=== PATIENT | male | born 1990 | race Two or more races ===

== ENCOUNTER 2023-01-04 03:24 | Emergency (ER) | payer BC, MEDICAID ==
[~2023-01-04] VITALS: Ht 188 cm; Wt 88.1 kg
[2023-01-04 03:53] VITALS: BP 111/79
[2023-01-04] MEDS ORDERED: methylPREDNISolone SOD SUCC 125 MG/2 ML VL IM ONE (04:15)
[2023-01-04] MEDS ORDERED: cefTRIAXone SOD 1,000 MG VL IM ONE (04:15)
[2023-01-04] MEDS ORDERED: AMOX-277 PO (04:24)
[2023-01-04] MEDS ORDERED: PRED20TA2 PO (04:24)
== END 2023-01-04 05:57 | disposition home or self-care (01) ==
LOC: ER 03:24
DX: J02.9 Acute pharyngitis, unspecified (principal); F41.9 Anxiety disorder, unspecified
CPT/HCPCS: 96372; 99284; J0696; J2930

== ENCOUNTER 2023-03-13 02:57 | Emergency (ER) | payer BC ==
[~2023-03-13] VITALS: Ht 188 cm; Wt 81.8 kg
[~2023-03-13 02:57] MED LIST: AMOX-277 PO; PRED20TA2 PO
[2023-03-13 08:00] VITALS: BP 129/70
[2023-03-13] MEDS ORDERED: HYDR-4902 PO (08:35)
[2023-03-13] MEDS ORDERED: KETOROLAC TROMETH 30 MG/ML 1ML VIAL IM ONE (08:45)
== END 2023-03-13 09:01 | disposition home or self-care (01) ==
LOC: ER 02:57
DX: K08.89 Other specified disorders of teeth and supporting structures (principal); Z88.1 Allergy status to other antibiotic agents
CPT/HCPCS: 96372; 99283; J1885